=== PATIENT | female | born 1955 | race Caucasian/White ===

== ENCOUNTER 2017-08-31 09:19 | Emergency (ER) | payer MEDICAID ==
[~2017-08-31] VITALS: Ht 160 cm; Wt 60.0 kg
[2017-08-31] MEDS ORDERED: MORPHINE SULFATE 10 MG/ML CPJ IV ONE (11:45)
[2017-08-31] MEDS ORDERED: ONDANSETRON HCL 4MG/2ML VIAL IV ONE ×2 (11:45→13:00)
[2017-08-31 11:57] LABS: BASOPHILS % 0.5 % (0.0-2.0); EOSINOPHILS % 0.6 % (0.0-5.0); HEMATOCRIT. 41.3 % (36.0-48.0); HEMOGLOBIN. 14.3 g/dL (12.0-16.0); MEAN CORPUSCULAR HEMOGLOBIN 30.8 pg (28.0-32.0); MEAN CORPUSCULAR VOLUME 88.9 fL (81.0-99.0); MEAN PLATELET VOLUME 8.9 fl (7.4-10.4); MONOCYTES % 4.1 % (2.0-8.0); NEUTROPHILS % 71.8 % (40.0-76.0); PLATELET 213 x1000/uL (130-400); RED BLOOD CELL COUNT 4.65 mill/uL (4.2-5.4); RED CELL DISTRIBUTION WIDTH 12.8 % (11.6-14.6)
[2017-08-31 12:07] LABS: PROTHROMBIN TIME 10.5 sec (9.4-11.6)
[2017-08-31 12:14] LABS: CARBON DIOXIDE 30 mEq/L (21-32); CHLORIDE 104 mEq/L (98-107); TROPONIN I < 0.02 ng/mL (0.00-0.04)
[2017-08-31] MEDS ORDERED: LEVETIRACETAM 500MG PREMIX 100 ML IV ONE (13:30)
[2017-08-31 16:00] VITALS: BP 128/58
[2017-08-31] MEDS ORDERED: IOHEXOL-350 100 ML BOTTLE ONE (16:14)
== END 2017-08-31 17:39 | disposition home or self-care (01) ==
LOC: ER 09:37
DX: R42 Dizziness and giddiness (principal); E78.00 Pure hypercholesterolemia, unspecified; Z90.49 Acquired absence of other specified parts of digestive tract
CPT/HCPCS: 36415; 70450; 70496; 71010; 80053; 83735; 84484; 85025; 85610; 85730; 93005; 96365; 96375; 99291; J1953; J2270; J2405; Q9967; Z7610